=== PATIENT | male | born 1950 | race Caucasian/White ===

== ENCOUNTER 2018-03-24 23:23 | Inpatient (IN) ==
[2018-03-25] MEDS ORDERED: Potassium Chloride 25 MEQ Effervescent Tablet PO PRN (00:23)
[2018-03-25] MEDS ORDERED: Potassium Phosphate Inj 30 MMOL in Sodium Chlor 0.9% Inj 250 ML IV.SIG PRN (00:23)
[2018-03-25] MEDS ORDERED: hydrALAZINE HCl Inj 20 MG/ML Vial IV.PUSH PRN (00:23)
[2018-03-25] MEDS ORDERED: Labetalol HCl Inj 100 MG/20 ML Vial IV.PUSH PRN (00:23)
[2018-03-25] MEDS ORDERED: Magnesium Sulfate Inj 4 GM in Sodium Chlor 0.9% Inj 92 ML IV.SIG PRN (00:23)
[2018-03-25] MEDS ORDERED: Magnesium Sulfate Inj 2 GM in Sodium Chlor 0.9% Inj 96 ML IV.SIG PRN (00:23)
[2018-03-25] MEDS ORDERED: Dextrose 50% in Water 50 ML Vial IV.PUSH PRN (00:23)
[2018-03-25] MEDS ORDERED: Potassium Chlor 20 mEq Premix 20 MEQ/100 ML PIGGYBACK IV.SIG PRN (00:23)
[2018-03-25] MEDS ORDERED: Acetaminophen 325 MG Tablet PO PRN (00:23)
[2018-03-25] MEDS ORDERED: Magnesium Oxide 400 MG Tablet PO PRN (00:23)
[2018-03-25] MEDS ORDERED: Sodium Phosphate Inj 30 MMOL in Sodium Chlor 0.9% Inj 250 ML IV.SIG PRN (00:23)
[2018-03-25] MEDS ORDERED: Potassium Phosphate 500 MG Soluble Tablet PO PRN ×2 (00:23)
[2018-03-25] MEDS ORDERED: Bisacodyl 10 MG Supp RECTAL PRN (00:23)
[2018-03-25] MEDS ORDERED: Potassium Chlor 40 mEq Premix 40 MEQ/100 ML PIGGYBACK IV.SIG PRN ×2 (00:23)
[2018-03-25] MEDS ORDERED: Phytonadione Inj 10 MG/ML Vial SQ ONE (00:39)
--- NOTE | 2018-03-25 00:43 | P.HPCC ---
History of Present Illness Service: Critical care medicine Primary Care Physician: UNKNOWN Chief Complaint: fall History of Present Illness: 67yM with history of etoh abuse presented to OSH after a fall without loss of consciousness. per the patient, he slid down something at home and hit is head. he denies LOC and denies injuring any other part of his body. after this, he complained of a headache. at OSH, he was found to have a 9mm hygroma with ? slight area of acute hemorrhage with a 6mm midline shift. patient denies numbness of weakness. denies vision changes, blurry vision, double vision. denies having anything like this happen before. denies frequent falls. does admit to etoh use, but states he drinks "2 beers/day". per OSH records, he had a CK of 1400, lactate was elevated, urine had positive ketones, etoh level was reported as 0.035, but no units given on transfer sheet. remainder of the ROS is negative, including no fever, chills, shortness of breath, chest pain, n/v/c/ d/abd pain. PMHx: etoh abuse FHx: noncontributory to his acute illness Soc Hx: 1/2 ppd smoker for many years. drinks daily, states 2 beers/day. denies drugs of abuse. All: [facility] Inpatient Certification: I certify that the inpatient services were ordered in accordance with Medicare regulations governing the order. This includes certification that hospital inpatient services are reasonable and necessary and in the case of services not specified as inpatient-only under 42 CFR 419.22(n), that they are appropriately provided as inpatient services in accordance to with the 2-midnight benchmark under 43 CFR 412.3(e) Estimated Total Length of Stay (Days): 7 Plans for Post Hospital Care: Not yet determined Review of Systems All other systems reviewed negative except as stated in HPI PMFSH - History History Provided By: Patient, Medical Record Medications and Allergies Active Medications: Active Medications Acetaminophen (Tylenol) 650 mg PO Q6H PRN PRN Reason: TEMPERATURE > 101 F Albuterol (Duoneb Neb (Prn)) 1 ampul NEB Q2HR NEB PRN PRN Reason: WHEEZING Bisacodyl (Dulcolax Supp) 10 mg RECTAL DAILY PRN PRN Reason: if no BM in last 24h Chlorhexidine Gluconate (Chlorhexidine 2% Cloth) 3 pack TOPICAL DAILY@0400 DARRICK Stop: 03/30/18 03:59 Chlorhexidine Gluconate (Chlorhexidine 2% Cloth) 3 pack TOPICAL DAILY@0400 PRN PRN Reason: Extra cloth needed Stop: 03/30/18 03:59 Dextrose (D50w Vial) 50 ml IV.PUSH UNSCH PRN PRN Reason: PER HYPOGLYCEMIA PROTOCOL Famotidine (Pepcid) 20 mg PO BID DARRICK Glucagon (Glucagon Inj) 1 mg OTHER PRN PRN PRN Reason: for Hypoglycemia Protocol Hydralazine HCl (Apresoline Inj) 10 mg IV.PUSH Q30M PRN PRN Reason: sbp > 180 Magnesium Sulfate 4 gm/ Sodium (Chloride) 100 mls @ 50 mls/hr IV.SIG UNSCH PRN PRN Reason: For Magnesium 0.9 - 1.1 mg/dL Magnesium Sulfate 2 gm/ Sodium (Chloride) 100 mls @ 50 mls/hr IV.SIG UNSCH PRN PRN Reason: For Magnesium 1.2 - 1.6 mg/dL Thiamine HCl 500 mg/ Sodium (Chloride) 255 mls @ 62.5 mls/hr IV.SIG Q8H DARRICK Stop: 03/27/18 00:59 Thiamine HCl 500 mg/ Sodium (Chloride) 505 mls @ 21 mls/hr IV.SIG Q24H DARRICK Stop: 04/01/18 00:22 Potassium Chloride (Kcl 40 Meq Premix Inj) 40 meq in 100 mls @ 25 mls/hr IV.SIG Q2H PRN PRN Reason: For Potassium 2.8 - 3.2 mEq/L Potassium Chloride (Kcl 20 Meq Premix Inj) 20 meq in 100 mls @ 50 mls/hr IV.SIG Q2H PRN PRN Reason: For Potassium 3.3 - 3.5 mEq/L Potassium Chloride (Kcl 20 Meq Premix Inj) 20 meq in 100 mls @ 50 mls/hr IV.SIG Q2H PRN PRN Reason: For Potassium 2.8 - 3.2 mEq/L Potassium Phosphate 30 mmol/ (Sodium Chloride) 260 mls @ 42 mls/hr IV.SIG UNSCH PRN PRN Reason: SEE LABEL COMMENTS Multivitamins 10 ml/ Thiamine HCl 100 mg/ Folic Acid 1 mg/Sodium Chloride 511.2 mls @ 125 mls/hr IV.SIG Q24H DARRICK Stop: 03/27/18 05:06 Potassium Chloride (Kcl 40 Meq Premix Inj) 40 meq in 100 mls @ 25 mls/hr IV.SIG UNSCH PRN PRN Reason: For Potassium 3.3 - 3.5 mEq/L Sodium Phosphate 30 mmol/ (Sodium Chloride) 260 mls @ 42 mls/hr IV.SIG UNSCH PRN PRN Reason: For Phosphorus < 2.5 mg/dL Insulin Human Regular (Novolin R Correctional Sugar Inj) 0 units SQ Q6HR DARRICK; Protocol Labetalol HCl (Trandate Inj) 10 mg IV.PUSH Q30M PRN PRN Reason: sbp > 180 Lactulose (Lactulose Liq) 30 ml PO BID DARRICK Magnesium Oxide (Mag-Ox) 800 mg PO UNSCH PRN PRN Reason: For Magnesium 1.2 - 1.6 mg/dL Multivitamins (Theragran) 1 tab PO DAILY [facility] Stop: 03/28/18 08:59 Ondansetron HCl (Zofran Inj) 4 mg IV.PUSH Q6H PRN PRN Reason: NAUSEA OR VOMITING Phytonadione (Vitamin K Inj) 10 mg SQ ONCE ONE Stop: 03/25/18 00:40 Polyethylene Glycol (Miralax) 17 gm PO BID [facility] Potassium Bicarb/Potassium Chloride (K-Lyte Cl Eff) 50 meq PO UNSCH PRN PRN Reason: For Potassium 3.3 - 3.5 mEq/L Potassium Phosphate (K-Phos Original) 2,000 mg PO Q4H PRN PRN Reason: Phosphorus Less Than 2.5 mg/dL Potassium Phosphate (K-Phos Original) 2,000 mg PO UNSCH PRN PRN Reason: SEE LABEL COMMENTS Senna/Docusate Sodium (Jennifer-Colace) 1 tab PO BID [facility] Sodium Chloride (Ns Flush) 2 ml IV.FLUSH UNSCH PRN PRN Reason: FLUSH AFTER USING IV ACCESS Allergies Allergy/AdvReac Type Severity Reaction Status Date / Time No Known Allergies Allergy Unverified 03/25/18 00:21 Results - Labs CBC & Chem 7: 03/25/18 01:06 03/25/18 01:06 Exam Vital signs: Intake & Output 03/24/18 03/24/18 03/25/18 06:59 18:59 06:59 Weight 81.8 kg Narrative: GENERAL: middle-aged male who appears older than stated age, lying in bed, tremulous on exam. HEENT: Normocephalic. Atraumatic. Pupils 2mm, equal, round, reactive, conjugate. Mucous membranes are dry NECK: Trachea is midline. There is no JVD. CHEST: equal chest rise. room air. CARDIOVASCULAR: tachycardic rate in the 100s, regular rhythm. sinus. ABDOMEN: Soft, nontender, nondistended. No guarding. MUSCULOSKELETAL: Pulses 2+. No peripheral edema. NEUROLOGICAL: RASS 0. follows commands. GCS 15. YVETTE 5/5 all 4 extremities. sensation grossly intact. significant resting tremor. slightly anxious on exam. Septic Shock Reassessment Septic shock perfusion: reassessment completed Caprini VTE Risk Assessment Caprini VTE Risk Assessment: Moderate/High Risk (score >= 2) VTE Pharmacological Exception Reason: Intracranial lesions Caprini Risk Assessment Model: Point Value = 1 Point Value = 2 Point Value = 3 Point Value = 5 Age 41-60 Minor surgery BMI > 25 kg/m2 Swollen legs Varicose veins or History of unexplained or recurrent spontaneous Oral contraceptives or hormone replacement Sepsis (< 1 month) Serious lung disease, including pneumonia (< 1 month) Abnormal pulmonary function Acute myocardial infarction Congestive heart failure (< 1 month) History of inflammatory bowel disease Medical patient at bed rest Age 61-74 Arthroscopic surgery Major open surgery (> 45 min) Laparoscopic surgery (> 45 min) Malignancy Confined to bed (> 72 hours) Immobilizing plaster cast Central venous access Age >= 75 History of VTE Family history of VTE Factor V Leiden Prothrombin [id number] Lupus anticoagulant Anticardiolipin antibodies Elevated serum homocysteine Heparin-induced thrombocytopenia Other congenital or acquired thrombophilia Stroke (< 1 month) Elective arthroplasty Hip, pelvis, or leg fracture Acute spinal cord injury (< 1 month) Prophylaxis Regimen: Total Risk Factor Score Risk Level Prophylaxis Regimen 0-1 Low Early ambulation 2 Moderate Order ONE of the following: *Sequential Compression Device (SCD) *Heparin 5000 units SQ BID 3-4 Higher Order ONE of the following medications: *Heparin 5000 units SQ TID *Enoxaparin/Lovenox 40 mg SQ daily (WT < 150 kg, CrCl > 30 mL/min) *Enoxaparin/Lovenox 30 mg SQ daily (WT < 150 kg, CrCl > 10-29 mL/min) *Enoxaparin/Lovenox 30 mg SQ BID (WT < 150 kg, CrCl > 30 mL/min) AND/OR *Sequential Compression Device (SCD) 5 or more Highest Order ONE of the following medications: *Heparin 5000 units SQ TID (Preferred with Epidurals) *Enoxaparin/Lovenox 40 mg SQ daily (WT < 150 kg, CrCl > 30 mL/min) *Enoxaparin/Lovenox 30 mg SQ daily (WT < 150 kg, CrCl > 10-29 mL/min) *Enoxaparin/Lovenox 30 mg SQ BID (WT < 150 kg, CrCl > 30 mL/min) AND *Sequential Compression Device (SCD) Assessment and Plan - Assessment and Plan Plan: Assessment: 67yM with etoh dependence and subacute left subdural hygroma with possible acute SDH component. Also with concomittant rhabdomyolysis, alcoholic ketoacidosis, severe dehydration, and likely early etoh withdraw/delirium tremens. critically ill with multi-organ involvement. Active problems: subacute right subdural hygroma possible right acute subdural hematoma component etoh dependence etoh withdraw syndrome/Delirium tremens alcoholic ketoacidosis lactic acidosis severe dehydration/acute intravascular volume depletion acute rhabdomyolysis coagulopathy most likely secondary to end-stage liver disease/etoh cirrhosis Plan: admit to ICU nsgy consulted and following: Dr Begum keep NPO until nsgy evaluates patient will need bedside swallow eval PT/OT/ST repeat head CT in AM redose additional Vit K watch for withdraw frequent neuro checks will need to add benzodiazepines judiciously given need for accurate neurologic assessment, but needs to prevent etoh withdraw. iv thiamine, folate, mvi trend CK ivf hydration recheck cbc, cmp, mg, phos, lactate, prealbumin, ggt Critically ill. critical care time: 41 minutes, exclusive of separately billable procedures.
[2018-03-25] MEDS ORDERED: Multivitamin Inj 10 ML, Folic Acid Inj 1 MG in Sodium Chlor 0.9% Inj 500 ML IV.SIG SCH (01:00)
[2018-03-25 01:18] LABS: Baso % (Auto) 1.1 % (0.0-2.0); Eos # (Auto) 0.1 th/mm3 (0.0-0.4); Eos % (Auto) 1.7 % (0.0-4.0); Hemoglobin 9.2 gm/dL (13.0-17.0); Lymph # (Auto) 0.7 th/mm3 (1.0-4.8); Lymph % (Auto) 17.6 % (9.0-44.0); Mean Corpuscular HGB Conc 35.5 % (32.0-36.0); Mean Corpuscular Hemoglobin 38.2 pg (27.0-34.0); Mean Corpuscular Volume 107.5 fL (80.0-100.0); Mean Platelet Volume 9.7 fL (7.0-11.0); Mono # (Auto) 0.5 th/mm3 (0.0-0.9); Mono % (Auto) 12.8 % (0.0-8.0); Neut # (Auto) 2.8 th/mm3 (1.8-7.7); Neut % (Auto) 66.8 % (16.0-70.0); Platelet Count 77 th/mm3 (150-450); Red Blood Count 2.42 mil/mm3 (4.50-5.90); Red Cell Distribution Width 14.3 % (11.6-17.2); White Blood Count 4.2 th/mm3 (4.0-11.0)
[2018-03-25 01:32] LABS: Activated Partial Thrombo Time 31.6 sec (23.4-31.7); INR 1.6 Ratio; Prothrombin Time 16.6 sec (9.8-11.6)
[2018-03-25 01:45] LABS: Alanine Aminotransferase 62 U/L (12-78); Albumin 2.1 g/dL (3.4-5.0); Anion Gap 6 meq/L (5-15); Aspartate Aminotransferase 186 U/L (15-37); Blood Urea Nitrogen 9 mg/dL (7-18); Calcium 7.3 mg/dL (8.5-10.1); Carbon Dioxide 32.7 meq/L (21.0-32.0); Chloride 103 meq/L (98-107); Gamma Glutamyl Transpeptidase 105 U/L (15-85); Glomerular Filtration Rate Greater Than 89 mL/min (>89); Glucose,Random 97 mg/dL (74-106); Sodium 142 meq/L (136-145)
[2018-03-25 01:53] LABS: Platelet Morphology Normal (Normal)
[2018-03-25 02:00] LABS: Alkaline Phosphatase 93 U/L (45-117); Creatine Kinase 1270 U/L (39-308); Potassium 2.8 meq/L (3.5-5.1); Prealbumin 3 mg/dL (20-40); Total Protein 5.3 g/dL (6.4-8.2)
[2018-03-25] MEDS: Potassium Chlor 20 mEq Premix 20 MEQ/100 ML PIGGYBACK IV.SIG PRN ×3 (02:00→06:05)
[2018-03-25] MEDS ORDERED: Norepinephrine Inj 4 MG in Sodium Chlor 0.9% Inj 246 ML IV.SIG PRN (02:03)
[2018-03-25] MEDS: Thiamine Inj 500 MG in Sodium Chlor 0.9% Inj 250 ML IV.SIG SCH ×2 (02:04→09:23)
[2018-03-25] MEDS ORDERED: Metoprolol Inj 5 MG/5 ML Vial IV.PUSH ONE (02:20)
[2018-03-25 02:33] LABS: CKMB Percent 0.7 % (0.0-4.0); Creatine Kinase MB 8.7 ng/mL (0.5-3.6)
--- NOTE | 2018-03-25 02:39 | P.CONNS ---
History of Present Illness Service: Neurosurgery Consult date: 03/25/18 Requesting Physician: Petar Meehan Reason for Consult: subdural hematoma Primary Care Provider: UNKNOWN Chief Complaint: fall History of Present Illness: I was asked by DFr. Meehan ( [employer]), top see and evaluate this 67yo M who presented to OSH s/p ground-level fallfall without loss of consciousness. per the patient and hit his head. he denies LOC and denies injuring any other part of his body. after this, he complained of a headache. at OSH, he was reportedly found to have a 9mm hygroma with ? slight area of acute hemorrhage and 6mm midline shift. Per OSH records, he had a CK of 1400, lactate was elevated, urine had positive ketones, etoh level was reported as 0.035, but no units given on transfer sheet. GCS-15 at OSH, GCS-15 here on arrival.He does not complain of H/A's or N/V's here Review of Systems All other systems reviewed negative except as stated in HPI PMFSH - History History Provided By: Patient, Medical Record Medications and Allergies Active Medications: Active Medications Acetaminophen (Tylenol) 650 mg PO Q6H PRN PRN Reason: TEMPERATURE > 101 F Albuterol (Duoneb Neb (Prn)) 1 ampul NEB Q2HR NEB PRN PRN Reason: WHEEZING Bisacodyl (Dulcolax Supp) 10 mg RECTAL DAILY PRN PRN Reason: if no BM in last 24h Chlorhexidine Gluconate (Chlorhexidine 2% Cloth) 3 pack TOPICAL DAILY@0400 DARRICK Stop: 03/30/18 03:59 Chlorhexidine Gluconate (Chlorhexidine 2% Cloth) 3 pack TOPICAL DAILY@0400 PRN PRN Reason: Extra cloth needed Stop: 03/30/18 03:59 Dextrose (D50w Vial) 50 ml IV.PUSH UNSCH PRN PRN Reason: PER HYPOGLYCEMIA PROTOCOL Famotidine (Pepcid) 20 mg PO BID DARRICK Glucagon (Glucagon Inj) 1 mg OTHER PRN PRN PRN Reason: for Hypoglycemia Protocol Hydralazine HCl (Apresoline Inj) 10 mg IV.PUSH Q30M PRN PRN Reason: sbp > 180 Magnesium Sulfate 4 gm/ Sodium (Chloride) 100 mls @ 50 mls/hr IV.SIG UNSCH PRN PRN Reason: For Magnesium 0.9 - 1.1 mg/dL Magnesium Sulfate 2 gm/ Sodium (Chloride) 100 mls @ 50 mls/hr IV.SIG UNSCH PRN PRN Reason: For Magnesium 1.2 - 1.6 mg/dL Thiamine HCl 500 mg/ Sodium (Chloride) 255 mls @ 62.5 mls/hr IV.SIG Q8H DARRICK Stop: 03/27/18 00:59 Last Admin: 03/25/18 02:04 Dose: 62.5 mls/hr Thiamine HCl 500 mg/ Sodium (Chloride) 505 mls @ 21 mls/hr IV.SIG Q24H DARRICK Stop: 04/01/18 16:59 Potassium Chloride (Kcl 40 Meq Premix Inj) 40 meq in 100 mls @ 25 mls/hr IV.SIG Q2H PRN PRN Reason: For Potassium 2.8 - 3.2 mEq/L Potassium Chloride (Kcl 20 Meq Premix Inj) 20 meq in 100 mls @ 50 mls/hr IV.SIG Q2H PRN PRN Reason: For Potassium 3.3 - 3.5 mEq/L Potassium Chloride (Kcl 20 Meq Premix Inj) 20 meq in 100 mls @ 50 mls/hr IV.SIG Q2H PRN PRN Reason: For Potassium 2.8 - 3.2 mEq/L Potassium Phosphate 30 mmol/ (Sodium Chloride) 260 mls @ 42 mls/hr IV.SIG UNSCH PRN PRN Reason: SEE LABEL COMMENTS Multivitamins 10 ml/ Folic (Acid 1 mg/ Sodium Chloride) 510.2 mls @ 125 mls/hr IV.SIG Q24H DARRICK Stop: 03/27/18 05:05 Last Admin: 03/25/18 02:04 Dose: 125 mls/hr Potassium Chloride (Kcl 40 Meq Premix Inj) 40 meq in 100 mls @ 25 mls/hr IV.SIG UNSCH PRN PRN Reason: For Potassium 3.3 - 3.5 mEq/L Sodium Phosphate 30 mmol/ (Sodium Chloride) 260 mls @ 42 mls/hr IV.SIG UNSCH PRN PRN Reason: For Phosphorus < 2.5 mg/dL Sodium Chloride (Ns Inj) 1,000 mls @ 125 mls/hr IV.CONT .Q8H DARRICK Insulin Human Regular (Novolin R Correctional Sugar Inj) 0 units SQ Q6HR DARRICK; Protocol Labetalol HCl (Trandate Inj) 10 mg IV.PUSH Q30M PRN PRN Reason: sbp > 180 Lactulose (Lactulose Liq) 30 ml PO BID [facility] Magnesium Oxide (Mag-Ox) 800 mg PO UNSCH PRN PRN Reason: For Magnesium 1.2 - 1.6 mg/dL Multivitamins (Theragran) 1 tab PO DAILY [facility] Stop: 03/28/18 08:59 Ondansetron HCl (Zofran Inj) 4 mg IV.PUSH Q6H PRN PRN Reason: NAUSEA OR VOMITING Polyethylene Glycol (Miralax) 17 gm PO BID [facility] Potassium Bicarb/Potassium Chloride (K-Lyte Cl Eff) 50 meq PO UNSCH PRN PRN Reason: For Potassium 3.3 - 3.5 mEq/L Potassium Phosphate (K-Phos Original) 2,000 mg PO Q4H PRN PRN Reason: Phosphorus Less Than 2.5 mg/dL Potassium Phosphate (K-Phos Original) 2,000 mg PO UNSCH PRN PRN Reason: SEE LABEL COMMENTS Senna/Docusate Sodium (Jennifer-Colace) 1 tab PO BID [facility] Sodium Chloride (Ns Flush) 2 ml IV.FLUSH UNSCH PRN PRN Reason: FLUSH AFTER USING IV ACCESS Sodium Chloride (Ns Flush) 2 ml IV.FLUSH BID [facility] Allergies Allergy/AdvReac Type Severity Reaction Status Date / Time No Known Allergies Allergy Unverified 03/25/18 00:21 Exam Vital signs: Intake & Output 03/24/18 03/24/18 03/25/18 06:59 18:59 06:59 Weight 76.4 kg Other: Weight On Admission 76.4 kg - Constitutional no acute distress, thin, cooperative - Routine HEENT Exam Head: Present: normocephalic, atraumatic Eye: Present: EOMI, PERRL, normal accommodation ENT: Present: mucous membranes moist, oropharynx clear, nares patent, external ear normal, TM's clear bilaterally - Routine Neck Exam Present: supple, full ROM, trachea midline - Routine Chest/Breast/Axilla Exam Comments: Negative - Routine Respiratory Exam Present: CTA bilaterally - Routine Cardiovascular Exam Present: RRR - Routine Abdominal Exam Present: soft, normoactive bowel sounds - Routine Extremities Exam Comments: Negative clubbing, cyanosis or edema - Routine Skin Exam Present: intact, warm - Routine Neurological Exam Present: alert, oriented X3, CN II-XII intact, normal reflexes, moving all extremities, normal tone, vision grossly intact, hearing grossly intact, normal speech - Detailed Neurological Exam: Coma Scale Verbal Response: Oriented Motor Response: Obey commands - Routine Psychiatric Exam Present: normal affect, normal thought process, cooperative Results - Laboratory Findings CBC and BMP: 03/25/18 01:06 03/25/18 01:06 Abnormal lab findings: Abnormal Labs 03/25/18 03/25/18 03/25/18 01:06 01:06 01:06 RBC 2.42 L Hgb 9.2 L Hct 26.0 L MCV 107.5 H MCH 38.2 H Plt Count 77 L Sherman % (Auto) 12.8 H Lymph # (Auto) 0.7 L Platelet Estimate Low L Basophilic Stippling Faint H PT 16.6 H Potassium 2.8 L* Carbon Dioxide 32.7 H Creatinine 0.59 L Calcium 7.3 L* Total Bilirubin 2.6 H GGT 105 H AST 186 H Total Creatine Kinase 1270 H Total Protein 5.3 L Albumin 2.1 L Prealbumin 3 L Assessment and Plan - Plan 67 yo male with right fronto-parietal subdural hygroma GCS-15 Agree with overnight admission frequent neuro checks HOB to 30 degrees watch for DT's Maintain euvolemic No indication for seizure prophylaxis No indication for repeat head CT scan unless there is a change in Neuro exam Regular diet
[2018-03-25 02:53] LABS: Amorphous Sediment,Urine Rare /hpf; Bilirubin,Urine Negative (Negative); Clarity,Urine Clear (Clear); Color,Urine Amber (Yellw/Straw); Glucose,Urine (UA) Negative (Negative); Leukocyte Esterase,Urine Small (Negative); Mucus,Urine Few /lpf (Occasional); Nitrite,Urine Negative (Negative); Specific Gravity,Urine 1.014 (1.002-1.035); Squamous Epithelial Cell,Urine 1 /hpf (0-5); Urobilinogen,Urine 4 or Greater mg/dL (Less than 2)
[2018-03-25 02:55] LABS: Magnesium 1.5 mg/dL (1.5-2.5); Phosphorus 1.7 mg/dL (2.5-4.9)
[2018-03-25 02:56] LABS: Amphetamine Screen,Urine Neg (Neg); Barbiturate Screen,Urine Neg (Neg); Cannabinoid Screen,Urine Neg (Neg); Cocaine Screen,Urine Neg (Neg)
[2018-03-25] MEDS: Sod Chloride 0.9% Inj 1,000 ML IV.CONT SCH ×2 (03:01→10:57)
[2018-03-25 03:02] LABS: Opiate Screen,Urine Neg (Neg)
[2018-03-25] MEDS ORDERED: Chlorhexidine Gluconate 2% 1 Pack (2 Cloths) TOPICAL PRN (04:00)
[2018-03-25] MEDS ORDERED: Chlorhexidine Gluconate 2% 1 Pack (2 Cloths) TOPICAL SCH (04:00)
[2018-03-25] MEDS: Insulin NovoLIN Regular Correctional Sugar Inj SQ SCH ×2 (06:10→12:39)
[2018-03-25 08:51] VITALS: TEMP 97.6
[2018-03-25] MEDS ORDERED: Senna/Docusate Sodium 8.6/50 MG Tablet PO SCH (09:00)
[2018-03-25] MEDS ORDERED: Polyethylene Glycol 3350 17 GM Packet PO SCH (09:00)
[2018-03-25] MEDS ORDERED: Famotidine 20 MG Tablet PO SCH (09:00)
[2018-03-25] MEDS ORDERED: Sodium Chloride 0.9% 2 ML Flush BID IV.FLUSH SCH (09:00)
[2018-03-25 12:35] VITALS: O2SAT 97
[2018-03-25 15:20] LABS: CKMB Percent 0.6 % (0.0-4.0); Creatine Kinase MB 6.7 ng/mL (0.5-3.6)
[2018-03-25 15:36] VITALS: BP 118/79
[2018-03-25 16:17] VITALS: PULSE 101; RESP 22
[2018-03-26 12:13] LABS: Hemoglobin A1c 4.3 % (4.3-6.0)
[2018-03-27] MEDS ORDERED: Thiamine Inj 500 MG in Sodium Chlor 0.9% Inj 500 ML IV.SIG SCH (17:00)
== END 2018-03-25 16:28 | disposition home or self-care (01) | DRG 91 ==
LOC: N03 03-25 00:14
PROVIDERS: ADMIT Internal Medicine Critical Care Medicine; ATTEND Internal Medicine Critical Care Medicine
CPT/HCPCS: 80053; 80307; 81001; 82550; 82552; 82948; 82962; 82977; 83036; 83605; 83735; 84100; 84134; 85025; 85610; 85730; 87086; 87641; 92610; 97162; 97167; G0195; J3411; J3430; J3480; J7030; J7040; J7050